=== PATIENT | male | born 1960 | race Caucasian/White ===

== ENCOUNTER 2023-09-08 08:36 | Day surgery (SDC) | payer OTHER, SELFPAY ==
[2023-08-17 14:05] VITALS: BMI 29.5
[2023-08-27 13:26] VITALS: BMI 28.8
--- NOTE | 2023-09-01 11:08 | PM.HPGS ---
History of Present Illness History of Present Illness Consent: Risks, benefits, and alternatives have been discussed and questions answered. Patient agrees to proceed with procedure. Chief complaint: Other fecal abnormalities, neoplasm screening Narrative: Adonis James is a 63 year old male referred for colon cancer screening due to a positive Cologuard test. His last colonoscopy was 5 years ago. His brother had colon cancer. Review of Systems Review of Systems: All systems reviewed & are unremarkable except as noted in HPI and below PMFSH Social History Social History Smoking packs per day: 1 Smoking cigarettes per day: 20.0 Years smoked: 50 Smoking pack-years: 50.00 Smoking status: Current every day smoker Tobacco type: cigarettes Alcohol intake: current Drinks per week: 24 Substance use type: does not use Living arrangements: with family Spiritual care concerns: No Meds Home Medications and Allergies Home Medications Medication Instructions Recorded Confirmed Type aspirin 81 mg tablet 81 mg PO DAILY 08/27/23 09/08/23 History atorvastatin 80 mg tablet 80 mg PO DAILY 08/27/23 09/08/23 History carvedilol 25 mg tablet 25 mg PO BID 08/27/23 09/08/23 History cholecalciferol (vitamin D3) 1,250 1,250 mcg PO WEEKLY 08/27/23 09/08/23 History mcg (50,000 unit) tablet clopidogrel 75 mg tablet 75 mg PO DAILY 08/27/23 09/08/23 History cyanocobalamin (vitamin B-12) 1,000 mcg PO DAILY 08/27/23 09/08/23 History 1,000 mcg tablet duloxetine 30 mg capsule,delayed 30 mg PO DAILY 08/27/23 09/08/23 History release ferrous sulfate 324 mg (65 mg 324 mg PO DAILY 08/27/23 09/08/23 History iron) tablet,delayed release folic acid 1 mg tablet 1 mg PO DAILY 08/27/23 09/08/23 History furosemide 40 mg tablet 20 mg PO DAILY 08/27/23 09/08/23 History magnesium oxide 400 mg PO DAILY 08/27/23 09/08/23 History omega-3 fatty acids-vitamin E 1 cap PO DAILY 08/27/23 09/08/23 History 1,000 mg capsule omeprazole 40 mg capsule,delayed 40 mg PO DAILY 08/27/23 09/08/23 History release sitagliptin 25 mg tablet 25 mg PO DAILY 08/27/23 09/08/23 History Allergies Allergy/AdvReac Type Severity Reaction Status Date / Time No Known Allergies Allergy Mild Verified 09/08/23 09:14 Exam Const: General: alert Orientation/consciousness: patient oriented x3 Resp: Auscultation: clear to auscultation bilaterally Cardio: Rhythm: regular rhythm GI: GI Palp: Yes Soft to palpation and No Tenderness to palpation present (GI) Neuro: General: patient oriented x3 Assessment and Plan Assessment and plan (1) Positive colorectal cancer screening using Cologuard test: Code(s): R19.5 - Other fecal abnormalities Status: Acute Assessment and Plan: Colonoscopy with possible biopsy or polypectomy or cautery or injection of substances.
--- NOTE | 2023-09-01 12:29 | SUR.PREOP ---
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 This was discussed with Dr Baires who stated he would like pt to hold clopidogrel for standard 4 days prior to procedure. Pt was informed of this and instructed his last dose of clopidogrel should be on , September 03, 2023. Pt verbalized understanding.
[2023-09-08] VITALS (7 sets, daily range): BP systolic 155–226; BP diastolic 71–91; PULSE 55–61; RESP 17–20; TEMP 36.6; O2SAT 97–100; BMI 29.0
--- NOTE | 2023-09-08 09:31 | P.PNAN_ITS ---
Anes - Initial Pre Proc Eval Procedure: Operation Date: 09/08/23 10:00 Proposed Procedures p Diagnostic Colonoscopy - Samir Baires MD Date/Time: 09/08/23 09:31 Surgeon: Samir Baires MD Pre Op Diagnosis: Other fecal abnormalities, neoplasm screening Patient Data Age: 63 Gender: M Height: 1.88 m Weight: 102.4 kg Allergies Allergy/AdvReac Type Severity Reaction Status Date / Time No Known Allergies Allergy Mild Verified 09/08/23 09:14 Home Medications Medication Instructions Recorded Confirmed Type aspirin 81 mg tablet 81 mg PO DAILY 08/27/23 09/08/23 History atorvastatin 80 mg tablet 80 mg PO DAILY 08/27/23 09/08/23 History carvedilol 25 mg tablet 25 mg PO BID 08/27/23 09/08/23 History cholecalciferol (vitamin D3) 1,250 1,250 mcg PO WEEKLY 08/27/23 09/08/23 History mcg (50,000 unit) tablet clopidogrel 75 mg tablet 75 mg PO DAILY 08/27/23 09/08/23 History cyanocobalamin (vitamin B-12) 1,000 mcg PO DAILY 08/27/23 09/08/23 History 1,000 mcg tablet duloxetine 30 mg capsule,delayed 30 mg PO DAILY 08/27/23 09/08/23 History release ferrous sulfate 324 mg (65 mg 324 mg PO DAILY 08/27/23 09/08/23 History iron) tablet,delayed release folic acid 1 mg tablet 1 mg PO DAILY 08/27/23 09/08/23 History furosemide 40 mg tablet 20 mg PO DAILY 08/27/23 09/08/23 History magnesium oxide 400 mg PO DAILY 08/27/23 09/08/23 History omega-3 fatty acids-vitamin E 1 cap PO DAILY 08/27/23 09/08/23 History 1,000 mg capsule omeprazole 40 mg capsule,delayed 40 mg PO DAILY 08/27/23 09/08/23 History release sitagliptin 25 mg tablet 25 mg PO DAILY 08/27/23 09/08/23 History Patient hx anesthesia problems: none Family hx anesthesia problems: none Results Review: All pre-operative results and documents have been reviewed as part of the pre- operative evaluation. [facility] Past Medical History Medical History Diabetes HTN (hypertension) PVD (peripheral vascular disease) Smoker Social History Social History Smoking packs per day: 1 Smoking cigarettes per day: 20.0 Years smoked: 50 Smoking pack-years: 50.00 Smoking status: Current every day smoker Tobacco type: cigarettes Alcohol intake: current Drinks per week: 24 Substance use type: does not use Living arrangements: with family Spiritual care concerns: No Anes - Eval Final PreProcedure Day of Procedure 09/08/23 09:31 Patient weight: overweight Heart: regular rate and rhythm Lungs: clear to auscultation Airway: Mallampati scale class II Neurological: alert and oriented Last oral intake: >/= 8 hours ASA classification: IV Emergent: no Anesthetic plan: proceed Anesthesia type and monitoring: general GIVS and standard monitoring Results Review: All pre-operative results and documents have been reviewed as part of the pre- operative evaluation. Informed Consent: The patient's anesthetic plan and its attendant risks and benefits were discussed with the patient/family/POA. Questions were solicited and answers provided to the satisfaction of the patient/family/POA.
--- NOTE | 2023-09-08 09:38 | SUR.PREOP ---
BP ELEVATED. TAKEN ON EACH ARM. RT 201/91. LT 209/87. DR PENA NOTIFIED.
[2023-09-08] MEDS: LACTATED RINGERS 1,000 ML 150 ML IV CONT (09:39)
[2023-09-08 09:42] LABS: Glucose Point of Care 140 mg/dl (65-105)
[2023-09-08] MEDS: hydrALAZINE HCL 20 MG/ML VIAL 10 MG IV PUSH ×2 (10:43→11:05)
[2023-09-08] MEDS: LABETALOL HCL INJ 100 MG/20 ML VIAL 10 MG IV PUSH (11:21)
--- NOTE | 2023-09-08 11:33 | SUR.PHASEII ---
Addendum entered by Virgie Vicente RN 09/08/23 11:38: Dr. Humphrey stated pt could be discharged once pt's BP had returned to pre procedure readings after IV labetolol administration. Original Note: Pt hypertensive post procedure. Pt given 2 doses IV hydralazine per Dr. Humphrey with no change in BP. Pt given 1 dose IV labetaolol per Dr. Humphrey. Pt's BP returned to pre procedure readings. Pt instructed to take normal home carvedilol once home and again this evening. Pt verbalized understanding.
--- NOTE | 2023-09-08 11:41 | WPDANESPN ---
Anes - Prog Note Post-Op Date/Time: 09/08/23 11:41 Cardiovascular status: normal Respiratory status: normal Airway patency: baseline Mental status: baseline Post-Op hydration status: normal Vital Signs: Last Vital Signs Temp 36.6 C 09/08/23 09:37 Pulse 59 L 09/08/23 11:30 Resp 17 09/08/23 11:30 BP 209/89 H 09/08/23 11:30 Pulse Ox 100 09/08/23 11:30 O2 Del Method Room Air 09/08/23 11:30 Pain Score (VAS): 0/10 I/O: Intake & Output 09/07/23 09/08/23 09/08/23 23:59 07:59 15:59 Intake Total 700 Balance 700 09/08/23 09:36 POC Capillary Glucose 140 H Patient Feedback: Patient satisfied with anesthetic care.
== END 2023-09-08 11:39 | disposition home or self-care (01) ==
PROVIDERS: PCP Nurse Practitioner; Visit Provider Internal Medicine Gastroenterology
PROC: 0DJD8ZZ Inspection of Lower Intestinal Tract, Via Natural or Artificial Opening Endoscopic (ICD-10-PCS; CPT 45378; principal; 2023-09-08 10:00)
DX: R19.5 Other fecal abnormalities (principal); D12.0 Benign neoplasm of cecum; D12.4 Benign neoplasm of descending colon; D12.5 Benign neoplasm of sigmoid colon; K57.30 Diverticulosis of large intestine without perforation or abscess without bleeding; K64.8 Other hemorrhoids
CPT/HCPCS: 45385

== ENCOUNTER 2023-09-08 11:52 | Outpatient (NON) | payer OTHER, SELFPAY | END 2023-09-08 11:53 | disposition home or self-care (01) | LOC: ANHLAB 09-09 11:55 | PROVIDERS: PCP Nurse Practitioner; Visit Provider Internal Medicine Gastroenterology | DX: R19.5 Other fecal abnormalities (principal) | CPT/HCPCS: 88305 ==

== ENCOUNTER 2023-09-30 13:07 | Inpatient (IN) | payer OTHER, SELFPAY ==
[2023-09-30] VITALS (28 sets, daily range): BP systolic 135–238; BP diastolic 47–98; PULSE 56–74; RESP 15–28; TEMP 36.2–36.6; O2SAT 94–98; BMI 29.7
--- NOTE | ~2023-09-30 | US_ITS ---
EXAMINATION: US renal BI DATE: 10/02/2023 11:56 INDICATION: Acute kidney injury. TECHNIQUE: Multiple ultrasound grayscale images of the kidneys were obtained. COMPARISON: None. FINDINGS: The right kidney measures 13.7 x 5.9 x 5.7 cm. The left kidney measures 13.1 x 6.7 x 5.2 cm. The kidn eys demonstrate normal parenchymal echogenicity. There is no hydronephrosis. The bladder is normal. T here is a small volume of ascites. IMPRESSION: 1. Normal kidneys. No hydronephrosis. 2. Small volume of ascites. Reviewed, dictated and finalized at location A.
--- NOTE | ~2023-09-30 | XR_ITS ---
EXAMINATION: XR chest 2V DATE: 09/30/2023 13:52 INDICATION: Shortness of breath and left-sided chest pain TECHNIQUE: PA and lateral views of the chest were obtained. COMPARISON: Chest radiograph dated 12/25/17 FINDINGS: Mild bibasilar opacities with blunting at the bilateral costophrenic angles consistent with small anju ateral pleural effusions and associated basilar atelectasis. No pulmonary edema or pneumothorax. The cardiomediastinal silhouette is normal. Partially visualized plate and screw fixation for lower cervi beverly anterior spinal fusion. Likely cholecystectomy clips the upper abdomen. IMPRESSION: 1. Small bilateral pleural effusions with mild bibasilar atelectasis. Reviewed, dictated and finalized at location B.
--- NOTE | ~2023-09-30 | XR_ITS ---
Portable chest x-ray Comparison: 10/01/2023 Clinical History: Shortness of breath Findings: There is mild bibasilar haziness, compatible mild bibasilar pulmonary edema. Cardiomedias tinal silhouette is stable. Bones and soft tissues are unremarkable. Impression: Mild bibasilar pulmonary edema pattern. Correlate for atypical infection. Reviewed, dictated and finalized at [facility]. Impression: Mild bibasilar pulmonary edema pattern. Correlate for atypical infection.
--- NOTE | ~2023-09-30 | XR_ITS ---
EXAMINATION: XR chest 1V portable DATE: 10/01/2023 08:04 INDICATION: Shortness of breath. TECHNIQUE: A single frontal view of the chest was obtained. COMPARISON: Chest 2 views 09/30/2023 FINDINGS: There is mild atelectasis in left lower lung zone. No pleural effusion or pneumothorax. The heart size is normal. There are changes of anterior and posterior fusion procedures in cervical spin e. IMPRESSION: 1. Mild atelectasis in left lower lung zone. Reviewed, dictated and finalized at location E.
--- NOTE | 2023-09-30 13:12 | ECG_ITS ---
Test Date: 2023-09-30 13:16:34 Measurements Intervals [place] Rate: 59 P: 55 WI: 164 QRS: -3 QRSD: 101 T: 133 QT: 428 QTc: 425 Interpretive Statements SINUS BRADYCARDIA DELAYED PRECORDIAL R/S TRANSITION LEFT VENTRICULAR HYPERTROPHY AND ST-T CHANGE BORDERLINE ST-T WAVE ABNORMALITY- LATERAL LEADS BORDERLINE ECG No previous ECG available for comparison Electronically Signed On 09-30-2023 15:06:57 CDT by Donaldo Scott D.O.
[2023-09-30 13:33] LABS: Basophils Percent Auto 0.5 % (0.2-1.2); Eosinophils Absolute Auto 0.1 K/mm3 (0-0.3); Eosinophils Percent Auto 0.9 % (0-4.4); Hematocrit 34.9 % (42.0-52.0); Hemoglobin 12.9 g/dL (14.0-18.0); Immature Granulocyte Absolute 0.02 K/mm3 (0.00-0.031); Immature Granulocyte Percent A 0.3 % (0-0.5); Immature Platelet Fraction Pct 7.6 % (0.9-11.2); Lymphocytes Absolute Auto 0.99 K/mm3 (0.9-3.2); Lymphocytes Percent Auto 15.6 % (18.3-44.2); Mean Corpuscular Hemoglobin 33.9 pg (26-34); Mean Corpuscular Volume 91.6 fl (80-100); Mean Platelet Volume 11.7 fl (7.4-10.4); Monocytes Absolute Auto 0.5 K/mm3 (0.1-0.6); Monocytes Percent Auto 8.5 % (2.6-8.5); Neutrophils Absolute Auto 4.7 K/mm3 (1.3-6.7); Neutrophils Percent Auto 74.2 % (45.5-73.1); Platelet Count Result 91 k/mm3 (150-375); Red Blood Count 3.81 M/mm3 (4.6-6.20); White Blood Count 6.4 K/mm3 (4.5-10.0)
[2023-09-30 13:43] LABS: INR 0.9; Prothrombin Time 13.1 Seconds (11.1-14.7)
[2023-09-30 13:44] LABS: Partial Thromboplastin Time 28.9 Seconds (22.3-36.8)
[2023-09-30 13:47] LABS: Alanine Aminotransferase 33 U/L (6-50); Albumin Level 3.1 g/dL (3.5-5.1); Alkaline Phosphatase 125 U/L (38-126); Anion Gap 3 mmol/L (4-12); Aspartate Amino Transferase 43 U/L (17-59); Bilirubin,Total 0.7 mg/dL (0.2-1.3); Blood Urea Nitrogen 14 mg/dL (9-20); Calcium 8.1 mg/dL (8.4-10.2); Carbon Dioxide 29 mmol/L (22-30); Chloride 104 mmol/L (98-107); Estimated CRCL calculation 49 ml/min; Estimated Glomerular Filt Rate 41; Glucose 201 mg/dL (65-110); Potassium 3.1 mmol/L (3.4-5.0); Sodium 136 mmol/L (137-145)
[2023-09-30 13:58] LABS: NT Pro B Type Natriuretic Pept 6910 pg/mL (19.9-100); Troponin I 0.033 ng/mL (0.000-0.034)
[2023-09-30] MEDS: hydrALAZINE HCL 20 MG/ML VIAL 10 MG IV PUSH (15:03)
[2023-09-30] MEDS: niCARdipine 20 MG/200 ML 20 MG/200 ML BAG 50 MG IV CONT ×2 (15:54→20:09)
--- NOTE | 2023-09-30 16:23 | ED.GENADULT ---
HPI - General Adult General Chief complaint: Recheck/Abnormal Lab/Rx Stated complaint: HTN, sob x1 week Time Seen by Provider: 09/30/23 14:55 History of Present Illness HPI narrative: Patient is a 63-year-old male who presents to the emergency department this afternoon due to an elevated blood pressure and shortness of breath. Patient admits that the shortness of breath has been getting worse for the past couple of days and he has also noticed that his lower extremity has been more swollen than usual. He admits that he normally has swelling around his ankles but now it has extended to his bilateral legs. His PCP was concerned for possibly a DVT but patient states that his lower extremity feels as though it is fluid filled and has been symmetrical. He admits that he has been taking his blood pressure medications regularly and denies any chest pain. He denies any additional symptoms or concerns at this time. Related Data Home Medications Medication Instructions Recorded Confirmed aspirin 81 mg tablet 81 mg PO DAILY 08/27/23 09/08/23 atorvastatin 80 mg tablet 80 mg PO DAILY 08/27/23 09/08/23 carvedilol 25 mg tablet 25 mg PO BID 08/27/23 09/08/23 cholecalciferol (vitamin D3) 1,250 1,250 mcg PO WEEKLY 08/27/23 09/08/23 mcg (50,000 unit) tablet clopidogrel 75 mg tablet 75 mg PO DAILY 08/27/23 09/08/23 cyanocobalamin (vitamin B-12) 1,000 mcg PO DAILY 08/27/23 09/08/23 1,000 mcg tablet duloxetine 30 mg capsule,delayed 30 mg PO DAILY 08/27/23 09/08/23 release ferrous sulfate 324 mg (65 mg 324 mg PO DAILY 08/27/23 09/08/23 iron) tablet,delayed release folic acid 1 mg tablet 1 mg PO DAILY 08/27/23 09/08/23 furosemide 40 mg tablet 20 mg PO DAILY 08/27/23 09/08/23 magnesium oxide 400 mg PO DAILY 08/27/23 09/08/23 omega-3 fatty acids-vitamin E 1 cap PO DAILY 08/27/23 09/08/23 1,000 mg capsule omeprazole 40 mg capsule,delayed 40 mg PO DAILY 08/27/23 09/08/23 release sitagliptin 25 mg tablet 25 mg PO DAILY 08/27/23 09/08/23 Allergies Allergy/AdvReac Type Severity Reaction Status Date / Time No Known Allergies Allergy Mild Verified 09/30/23 13:12 Review of Systems Review of Systems: All systems are reviewed and are negative unless stated otherwise in the HPI. [facility] Past Medical History Medical History Diabetes HTN (hypertension) PVD (peripheral vascular disease) Smoker Social History Social History Smoking packs per day: 1 Smoking cigarettes per day: 20.0 Years smoked: 50 Smoking pack-years: 50.00 Smoking status: Current every day smoker Tobacco type: cigarettes Alcohol intake: current Drinks per week: 24 Substance use type: does not use Living arrangements: with family Spiritual care concerns: No Exam Narrative: General: Alert, awake, afebrile, in no acute distress. HEENT: PERRL, no rhinorrhea, no post nasal drip, oropharynx clear. Cardiovascular: Regular rate and rhythm, no murmurs, rubs or gallops, bilateral lower extremity 3+ pitting edema. Respiratory: Clear to auscultation bilaterally, no tachypnea, no wheezing, no rhonchi, no rubs, no respiratory distress. Abdomen: Soft, nontender, nondistended, no rebound, no guarding, no peritoneal signs. Musculoskeletal: No joint swelling or deformity, normal muscle tone. Skin: No rashes or petechia, no signs of infection. Neurological: Alert and oriented to person, place, and time. Follows all commands. No focal deficits, speech is clear and fluent. Course Vital Signs Vital signs: Vital Signs Temperature 97.2 F L 09/30/23 13:10 Pulse Rate 64 09/30/23 13:10 Respiratory Rate 16 09/30/23 13:10 Blood Pressure 238/82 H 09/30/23 13:10 Pulse Oximetry 98 09/30/23 13:10 Temperature 97.2 F L 09/30/23 13:10 Pulse Rate 56 L 09/30/23 15:55 Respiratory Rate 17 09/30/23 15:55 Blood Pressure 210/79 H 09/30/23 15:55 Pulse Oximetry 97 09/30/23 15:55
[2023-09-30] MEDS: POTASSIUM CHLORIDE 20 MEQ PACKET (FOR LIQUID) 40 MEQ PO (16:36)
[2023-09-30 16:46] LABS: Magnesium 1.8 mg/dL (1.6-2.3)
--- NOTE | 2023-09-30 17:45 | ADMGEN ---
This patient, Adonis James, was admitted to Intensive Care Unit-2. Patient/family oriented to hospital policies and general routines including ID bracelet, bed and alarms, visiting hours, pain management, procedures, bathroom and other care routines, personal items, smoking policy, room service/diet, and visiting hours. Information on how to activate the Rapid Response Team has been discussed. Patient/Family are encouraged to report perceived risks to care and to ask questions if they do not understand what they are told or what they should do.
[2023-09-30 19:52] LABS: Creatine Kinase 177 U/L (55-170)
[2023-09-30 21:25] LABS: Glucose Point of Care 151 mg/dl (65-105)
--- NOTE | 2023-09-30 21:30 | PM.IMHP ---
H&P: HPI History of Present Illness Date/Time: 09/30/23 21:30 Chief Complaint: HTN, SOB Narrative: 63 y/o M presents here with shortness of breath, high blood pressure, and left shoulder pain with PMH of DM, HTN, peripheral vascular disease, and current smoker. The patient presents here from home for further evaluation of shortness of breath, high blood pressure, swelling in his lower extremities, and left shoulder pain. Initially started with the lower extremity swelling which started around a year ago. Originally was confined to his ankles and symmetric. Worsening of the swelling was preceded by shortness of the breath which has been ongoing for 2 weeks. Initially noted it when he laid on his left side which was alleviated by slow deep breaths. Has since worsened and occurring intermittently. Does not appear to coincide with activity as it is also occurring with rest per patient. Patient also reports Now in the last week the swelling has extended to his calves and abdomen, swelling remains symmetric. Patient had a follow-up appt with his PCP on Thursday (09/27) and his blood pressure was 226/102. Patient was urged to go to the ED for care. Patient however went home to recheck his blood pressure which was 182/83. Yesterday patient reports having episodes of not feeling right, would recheck his blood pressure and an EKG on his watch which did not show AFib. Reports it was 145/72 yesterday evening but then 196/88 before bed. Reports compliance with his home blood pressure medications. When his BP remained elevated this morning despite his morning meds he elected to seek care. Endorsing associated pulsating headache, since initiation of nicardipine gtt and short nap the headache has resolved. Denying dizziness or vision changes. Initial VS at presentation: 97.2? F, HR 64, RR 16, weight 238/82, and 98% on RA. ED workup showed: No leukocytosis, hemoglobin 12.9, normal coags sodium 136, potassium 3.1, creatinine 1.7 and GFR 41, glucose 201, BNP 6910, and initial troponin 0.033. CXR showed small bilateral pleural effusions with mild bibasilar atelectasis. Review of Systems Review of Systems: All systems reviewed & are unremarkable except as noted in HPI and below PMFSH Past Medical History Medical History Diabetes HTN (hypertension) PVD (peripheral vascular disease) Smoker Social History Social History Smoking packs per day: 1 Smoking cigarettes per day: 20.0 Years smoked: 50 Smoking pack-years: 50.00 Smoking status: Never smoker Tobacco type: cigarettes Alcohol intake: never Drinks per week: 24 Substance use: never Substance use type: does not use Do You Feel Safe in your Home?: Yes Lack of Transportation: No Lack of Food: Never True Current Housing: I Have Housing Concerned About Future Housing: No Difficulty Paying Gas/Electric Bills: No Difficulty Paying for Meds: No Currently Unemployed: No Education: High School Diploma/GED Difficulty w/ Childcare or Family Care: No Living arrangements: with family Spiritual care concerns: No Meds Home Medications and Allergies Home Medications Medication Instructions Recorded Confirmed Type aspirin 81 mg tablet 81 mg PO DAILY 08/27/23 09/30/23 History atorvastatin 80 mg tablet 80 mg PO DAILY 08/27/23 09/30/23 History carvedilol 25 mg tablet 25 mg PO BID 08/27/23 09/30/23 History cholecalciferol (vitamin D3) 1,250 1,250 mcg PO WEEKLY 08/27/23 09/30/23 History mcg (50,000 unit) tablet clopidogrel 75 mg tablet 75 mg PO DAILY 08/27/23 09/30/23 History cyanocobalamin (vitamin B-12) 1,000 mcg PO DAILY 08/27/23 09/30/23 History 1,000 mcg tablet duloxetine 30 mg capsule,delayed 30 mg PO DAILY 08/27/23 09/30/23 History release ferrous sulfate 324 mg (65 mg 324 mg PO DAILY 08/27/23 09/30/23 History iron) tablet,delayed release folic acid 1 mg tablet 1 mg PO DAILY 08/27/23
[2023-09-30 21:31] LABS: MRSA (PCR) NOT DETECTED (NOT DETECTE)
[2023-09-30] MEDS: niCARdipine 20 MG/200 ML 20 MG/200 ML BAG 75 MG IV CONT (23:05)
[2023-09-30 23:29] LABS: Creatinine Urine 183.5 mg/dL
[2023-09-30 23:36] LABS: Sodium Urine Random 65 meq/L
[2023-10-01] VITALS (37 sets, daily range): BP systolic 120–185; BP diastolic 58–88; PULSE 59–81; RESP 13–23; TEMP 36.6–37.1; O2SAT 88–98
[2023-10-01 00:43] LABS: Total Protein Urine Random > 600 mg/dL; Ur Ttl Prot Creatinine Ratio 3.27 mg/mg (0-0.20)
[2023-10-01] MEDS: niCARdipine 20 MG/200 ML 20 MG/200 ML BAG 75 MG IV CONT ×2 (01:45→04:30)
[2023-10-01 04:10] LABS: Basophils Absolute Auto 0.1 K/mm3 (0.0-0.1); Basophils Percent Auto 0.5 % (0.2-1.2); Eosinophils Absolute Auto 0.1 K/mm3 (0-0.3); Eosinophils Percent Auto 1.2 % (0-4.4); Hematocrit 33.1 % (42.0-52.0); Hemoglobin 12.1 g/dL (14.0-18.0); Immature Granulocyte Absolute 0.03 K/mm3 (0.00-0.031); Immature Granulocyte Percent A 0.3 % (0-0.5); Immature Platelet Fraction Pct 6.8 % (0.9-11.2); Lymphocytes Absolute Auto 1.53 K/mm3 (0.9-3.2); Lymphocytes Percent Auto 14.8 % (18.3-44.2); Mean Corpuscular HGB Conc 36.6 g/dl (32-36); Mean Corpuscular Hemoglobin 33.2 pg (26-34); Mean Corpuscular Volume 90.9 fl (80-100); Mean Platelet Volume 11.4 fl (7.4-10.4); Monocytes Absolute Auto 0.9 K/mm3 (0.1-0.6); Monocytes Percent Auto 8.7 % (2.6-8.5); Neutrophils Absolute Auto 7.7 K/mm3 (1.3-6.7); Neutrophils Percent Auto 74.5 % (45.5-73.1); Platelet Count Result 108 k/mm3 (150-375); Red Blood Count 3.64 M/mm3 (4.6-6.20); White Blood Count 10.4 K/mm3 (4.5-10.0)
[2023-10-01 04:17] LABS: Hemoglobin A1C 6.7 % (<5.7)
[2023-10-01 04:19] LABS: Alanine Aminotransferase 30 U/L (6-50); Alkaline Phosphatase 115 U/L (38-126); Anion Gap 3 mmol/L (4-12); Aspartate Amino Transferase 40 U/L (17-59); Bilirubin,Total 0.9 mg/dL (0.2-1.3); Blood Urea Nitrogen 19 mg/dL (9-20); Calcium 8.2 mg/dL (8.4-10.2); Carbon Dioxide 29 mmol/L (22-30); Chloride 106 mmol/L (98-107); Creatine Kinase 161 U/L (55-170); Estimated CRCL calculation 44 ml/min; Estimated Glomerular Filt Rate 36; Glucose 125 mg/dL (65-110); Magnesium 1.9 mg/dL (1.6-2.3); Phosphorus 3.4 mg/dL (2.5-4.5); Sodium 138 mmol/L (137-145)
[2023-10-01] MEDS: niCARdipine 20 MG/200 ML 20 MG/200 ML BAG 50 MG IV CONT (07:45)
[2023-10-01 07:52] LABS: Glucose Point of Care 158 mg/dl (65-105)
--- NOTE | 2023-10-01 07:53 | WPDCNINT ---
Assessment and Plan Assessment and plan (1) Hypertensive urgency: Code(s): I16.0 - Hypertensive urgency Status: Acute Assessment and Plan: Patient presented with shortness of breath, headaches, bilateral lower extremity edema and elevated blood pressures that he took at home. In the ER blood pressures were 238/82, patient was given hydralazine 10 mg IV x1 and then started on nicardipine infusion and transferred to the ICU for further management -patient states he has tried lisinopril and has not worked for him -he gets his care in [place] from by his primary care doctor as well as his med surg nurse -he is currently on Lasix 20 mg p.o. q.day, carvedilol 25 mg p.o. b.i.d. -given his creatinine is elevated, will hold Lasix for now, will restart carvedilol and added amlodipine -will have Cardiology evaluate the patient for hypertensive urgency, increasing lower extremity edema and likely CHF given the elevated proBNP -troponin x1 was negative, denies any chest pain -echocardiogram has been ordered (2) Diabetes: Code(s): E11.9 - Type 2 diabetes mellitus without complications Status: Chronic Assessment and Plan: Continue sliding scale insulin Accu-Cheks -hemoglobin A1c is 6.7 this admission -patient takes sitagliptin at home (3) RENETTA (acute kidney injury): Code(s): N17.9 - Acute kidney failure, unspecified Status: Acute Assessment and Plan: Acute kidney injury, creatinine 1.90, (unknown). Patient does have a history of hypertension, diabetes, CHF given his lower extremity edema and elevated proBNP, could also be related to Lasix, patient also has a history of tobacco abuse -echocardiogram is pending -patient with adequate p.o. intake -continue monitoring urine output, renal function electrolytes -will hold her Lasix for now - (4) Acute hypokalemia: Code(s): E87.6 - Hypokalemia Status: Acute Assessment and Plan: Replace potassium (5) Congestive heart failure: Code(s): I50.9 - Heart failure, unspecified Status: Acute Assessment and Plan: Patient presented with shortness of breath, hypertension urgency, Lower extremity edema bilaterally, elevated proBNP, history of hypertension -will obtain echocardiogram -cardiology has been consult -chest x-ray this morning showed mild atelectasis in the left lower lung zone (6) Tobacco abuse: Code(s): Z72.0 - Tobacco use Status: Acute Assessment and Plan: Patient was counseled on smoking cessation, stated that he has tried to quit smoking for a couple of times for 6 months but restarted. Patient stated that he is going to think again about quitting. I did explain to him that he is at increased risk of cardiac disease due to history of smoking along with a history of essential hypertension, diabetes. Plan DVT prophylaxis: Lovenox Stress ulcer prophylaxis: Not indicated Nutrition: Heart healthy diet Code Status: Full code Critical Care Time Spent: 47 minutes Due to a high probability of clinically significant, life threatening deterioration, the patient required my highest level of preparedness to intervene emergently and I personally spent this critical care time directly and personally managing the patient. This critical care time included obtaining a history; examining the patient; pulse oximetry; ordering and review of studies; arranging urgent treatment with development of a management plan; evaluation of patient's response to treatment; frequent reassessment; and discussions with other providers. It was exclusive of separately billable procedures and treating other patients and teaching time. Please see Assessment and Plan section and the rest of the note for further information on patient assessment and treatment This dictation may have been done utilizing a voice recognition system. Attempts have been made to correct errors. However, there may be uncorrected grammatical, spelling, and
[2023-10-01] MEDS: MAGNESIUM SULF 2 GM/WATER 50ML 2 GM/50 ML BAG IVPB (08:04)
[2023-10-01] MEDS: DULoxetine HCL 30 MG CAPSULE.DR PO (08:05)
[2023-10-01] MEDS: amLODIPine BESYLATE 10 MG TABLET PO (08:05)
[2023-10-01] MEDS: ATORVASTATIN 40 MG TABLET 80 MG PO (08:05)
[2023-10-01] MEDS: POTASSIUM CHLORIDE 20 MEQ ER TABLET 80 MEQ PO (08:05)
[2023-10-01] MEDS: CLOPIDOGREL BISULFATE 75 MG TABLET PO (08:05)
[2023-10-01] MEDS: ASPIRIN 81 MG CHEWABLE TABLET PO (08:05)
[2023-10-01] MEDS: ENOXAPARIN 40 MG/0.4 ML SYRINGE SUB-Q (08:06)
[2023-10-01] MEDS: PANTOPRAZOLE 40 MG TABLET PO ×2 (08:10→16:45)
[2023-10-01] MEDS: carvediloL 25 MG TABLET PO ×2 (08:52→19:55)
--- NOTE | 2023-10-01 09:48 | PM.CNCAR ---
Assessment and Plan Assessment and plan (1) Hypertensive emergency: Code(s): I16.1 - Hypertensive emergency Status: Acute Assessment and Plan: Continue Coreg 25mg BID. Started on Amlodipine 10mg once daily. Wean off Nicardipine drip as tolerated. If SCr improves, recommend to resume Lasix. Depending on how his renal function does, would also like to add ACEi/ARB as well since he is a diabetic. Echocardiogram ordered and pending (will be done 10/01 due to the September holiday). (2) RENETTA (acute kidney injury): Code(s): N17.9 - Acute kidney failure, unspecified Status: Acute Assessment and Plan: SCr 1.7 on admission, up to 1.9 this morning. Baseline level is unknown. Continue to monitor renal function. (3) Diabetes: Code(s): E11.9 - Type 2 diabetes mellitus without complications Status: Chronic Assessment and Plan: Management as per primary team. (4) Tobacco abuse: Code(s): Z72.0 - Tobacco use Status: Acute Assessment and Plan: Recommend smoking cessation. Plan Recommendations and plan discussed with Hospitalist. History of Present Illness History of Present Illness Consult date/time: 10/01/23 09:48 Requesting physician: Amalia Martinez MD Consult reason: Other (Hypertensive Emergency ) Reason For Visit: Hypertensive Emergency/Cardene Drip/Fluid Overload Narrative: We are consulted for hypertensive emergency. This is a 63 year old male with hypertension, diabetes mellitus, peripheral vascular disease, tobacco dependence who presented to [facility] for shortness of breath, headache, increased lower extremity edema. 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 No chest pain. Patient reports that his blood pressures at home usually run in the 180s to 200s systolics. Takes Coreg 25mg BID and Lasix 20mg once daily at home, which he reports compliance with. He recently lost his sister due to liver and renal disease, and that has added to his stress. In the ED, blood pressure was 238/82mmHg. Given dose of Hydralazine 10mg IV and started on Nicardipine drip with improvement in his blood pressure. Creatinine noted to be 1.7, which increased to 1.9 on today's labs. BNP 6910. EKG with sinus rhythm, LVH with secondary repolarization abnormalities. Review of Systems Review of Systems: All systems reviewed & are unremarkable except as noted in HPI and below (HPI) [facility] Past Medical History Medical History Diabetes HTN (hypertension) PVD (peripheral vascular disease) Smoker Social History Social History Smoking packs per day: 1 Smoking cigarettes per day: 20.0 Years smoked: 50 Smoking pack-years: 50.00 Smoking status: Never smoker Tobacco type: cigarettes Alcohol intake: never Drinks per week: 24 Substance use: never Substance use type: does not use Do You Feel Safe in your Home?: Yes Lack of Transportation: No Lack of Food: Never True Current Housing: I Have Housing Concerned About Future Housing: No Difficulty Paying Gas/Electric Bills: No Difficulty Paying for Meds: No Currently Unemployed: No Education: High School Diploma/GED Difficulty w/ Childcare or Family Care: No Living arrangements: with family Spiritual care concerns: No Meds Home Medications and Allergies Home Medications Medication Instructions Recorded Confirmed Type aspirin 81 mg tablet 81 mg PO DAILY 08/27/23 09/30/23 History atorvastatin 80 mg tablet 80 mg PO DAILY 08/27/23 09/30/23 History carvedilol 25 mg tablet 25 mg PO BID 08/27/23 09/30/23 History cholecalciferol (vitamin D3) 1,250 1,250 mcg PO WEEKLY 08/27/23 09/30/23 History mcg (50,000 unit) tablet clopidogrel 75 mg tablet 75 mg PO DAILY 08/27/23 09/30/23 History cyanocobalamin (vitamin B-12) 1,000 mcg PO DAILY 08/27/23 09/30/23 History 1,000 mc
[2023-10-01 11:57] LABS: Glucose Point of Care 216 mg/dl (65-105)
[2023-10-01] MEDS: INSULIN ASPART (*BKC) 100 UNITS/ML SUB-Q (12:02)
--- NOTE | 2023-10-01 13:03 | PM.IMPN ---
Progress Note: A&P Assessment and Plan (1) Hypertensive urgency: Code(s): I16.0 - Hypertensive urgency Status: Acute Assessment and Plan: Patient presented with SOB, headaches and worsening bilateral lower extremity edema and found to have markedly elevated blood pressure at 238/82. Patient was given hydralazine 10 mg IV x1 and then started on nicardipine infusion and transferred to the ICU for further management He gets his care in [place] from by his primary care doctor as well as his general manager. Patient states lisinopril has not worked for him. He has noted BP has been running high at home. Home meds: Lasix 20 mg p.o. q.day, carvedilol 25 mg p.o. b.i.d. Trooponin negative x1. BNP 6900. EKG showing sinus bradycardia (59) with LVH and ST-T wave changes CXR showing small bilateral pleural effusions with atelectasis. Lasix held due to elevated Cr. Carvedilol resumed and amlodipine added Cardiology consulted and appreciate their input. Weaned off nicardipine. Monitor closely and don't overcorrect Echo ordered. (2) Diabetes: Code(s): E11.9 - Type 2 diabetes mellitus without complications Status: Chronic Assessment and Plan: A1c is 6.7. The patient's blood glucose was reviewed on 09/30 Glucose remains well controlled. Continue AccuCheks covering with sliding scale. Hypoglycemia protocol available as needed. Continue to follow. Sitagliptin on hold. (3) RENETTA (acute kidney injury): Code(s): N17.9 - Acute kidney failure, unspecified Status: Acute Assessment and Plan: Patient with renal insufficiency. Creatinine 1.7 but with unknown baseline. He does have HTN and DM so suspect he has at least a chronic component. Urine Prot/Cr ration 3.3gm consistent with nephrotic syndrome which could explain his edema and bloating. Echocardiogram is pending Cr 1.9 today. Check urine studies and other testing Continue to monitor urine output, renal function and electrolytes (4) Acute hypokalemia: Code(s): E87.6 - Hypokalemia Status: Acute Assessment and Plan: Potassium low on admission. Probably realted to the home lasix Replace potassium. (5) Congestive heart failure: Code(s): I50.9 - Heart failure, unspecified Status: Acute Assessment and Plan: CXR as mentioned above. BNP 6900. Patient presented with SOB and lower extremity edema Concern for CHF but consider nephrotic syndrome and HTN urgency. Echo ordered. Monitor off Lasix (6) Tobacco abuse: Code(s): Z72.0 - Tobacco use Status: Acute Assessment and Plan: Patient was was educated about the benefits of smoking cessation (7) PVD (peripheral vascular disease): Code(s): I73.9 - Peripheral vascular disease, unspecified Status: Acute Assessment and Plan: Stable. Patient is status post stent placement in his pelvis and lower extremities. Smoking cessation was advised Continue aspirin and Lipitor. Plan DVT prophylaxis: Lovenox Code Status: Full code Subjective Date/time seen: 10/01/23 13:03 Interval history: 63yo male with HTN, DM, PVD and tobacco abise here for shortness of breath. Patient was on nicardipine drip this morning that was weaned off. He denies any chest pain. Shortness of breath is better. No abdominal pain. No gum bleeding but does have easy bruising. He does have a productive cough. He had a left heart catheterization in December but no stents required. He does have peripheral arterial disease with stents in his pelvis and legs. He has noted increasing leg edema with abdominal bloating. He is on Lasix for leg edema but denies history of heart failure. Leg edema has improved since admission. Exam Narrative: AF 98.0 148/66 64 20 95% 2L Gen - NARD Chest - left base crackles o/w clera. CV - RRR S1/S2 with occasional extra beat and 2/6 systolic murmur Rt USB. Tele showing PVCs Abd - Soft, NT/N
[2023-10-01 15:49] LABS: Glucose Point of Care 139 mg/dl (65-105)
[2023-10-01] MEDS: hydrALAZINE HCL 20 MG/ML VIAL 10 MG IV PUSH ×3 (17:00→23:50)
[2023-10-01 17:29] LABS: Appearance Urine Clear (Clear); Bacteria Urine None Seen /hpf; Bilirubin Urine Negative (Negative); Blood Urine 1+ (Negative); Color Urine Yellow (Yellow); Glucose Urine UA 1+ mg/dL (Negative); Ketones Urine Trace mg/dL (Negative); Leukocyte Esterase Ur Negative LEU/UL (Negative); Need Manual Microscopic Reviewed; Nitrate Urine Negative (Negative); Protein Urine 4+ mg/dL (Negative); RBC Urine 0-2 /hpf (0-2); Specific Grav Ur 1.023 (1.001-1.035); Squamous Epithelial Cell Urine Occasional /hpf (Few); Urobilinogen Urine 0.2 mg/dL (<2.0); WBC Urine 0-5 /hpf (0-3); pH Urine 5.5 (5.0-9.0)
[2023-10-01 17:30] LABS: Add Urine Microscopic? YES
[2023-10-01 21:51] LABS: Glucose Point of Care 173 mg/dl (65-105)
[2023-10-02] VITALS (22 sets, daily range): BP systolic 158–194; BP diastolic 67–85; PULSE 61–75; RESP 15–22; TEMP 36.2–36.6; O2SAT 94–98
--- NOTE | 2023-10-02 | ECHO_ITS ---
Patient Info Name: Adonis James Age: 63 years : 1960 Gender: Male Ht: 75 in Wt: 238 lbs BSA: 2.41 m2 HR: 66 bpm BP: 172 / 71 mmHg Heart Rhythm: Sinus Rhythm Technical Quality: Good Exam Date: 10/02/2023 7:57 AM Exam Location: Echo Lab Patient Status: Inpatient Admit Date: 09/30/2023 Staff Ordering Physician: Hattie Sorenson APRN Distiller: Isidro Holguin RDCS Attending Provider: Tan Olson MD Referring Physician: Delta ALEGRE; Exam Type: CA echo doppler color flow Study Info Indications - elevated BNP - SOB Complete two-dimensional, color flow and Doppler transthoracic echocardiogram is performed. Summary 1. Complete two-dimensional, color flow and Doppler transthoracic echocardiogram is performed. 2. Severe concentric left ventricular hypertrophy with vigorous systolic function and diastolic noncompliance. 3. Mitral annular calcium. 4. Mildly sclerotic aortic valve with trivial regurgitation. Left Ventricle Left ventricular chamber dimension is normal. Left ventricular systolic function is normal, estimated at 65-70%. There is severe concentric increased left ventricular wall thickness. The left ventricular diastolic function is grade I diastolic dysfunction. Right Ventricle Right ventricular chamber dimension is normal. Left Atria Left atrial chamber dimension is mildly enlarged. Right Atria Right atrial chamber dimension is normal. Aortic Valve The aortic valve is trileaflet. There is mild aortic valve sclerosis. There is trace aortic valve regurgitation. Pulmonic Valve The pulmonic valve is normal. Mitral Valve The mitral valve has normal leaflets. The mitral valve annulus is moderately calcified. Tricuspid Valve The tricuspid valve leaflets are normal. Pericardium/Pleural The pericardium appears normal. Aorta The aortic root size at the sinus of Valsalva is normal. Left Ventricular Outflow Tract Name Value Normal LVOT 2D LVOT Diameter 2.2 cm LVOT Doppler LVOT Peak Gradient 9 mmHg LVOT Mean Gradient 6 mmHg LVOT VTI 32 cm LVOT VTI/AV VTI Ratio 0.6 LVOT Stroke Volume 122 ml LVOT CO 7.5 l/min LVOT CI 3.1 l/min/m2 Pulmonic Valve Name Value Normal PV Doppler PV Peak Gradient 8 mmHg Mitral Valve Name Value Normal MV Doppler MV Peak Gradient 8 mmHg MV Mean Gradient 4 mmHg MV Decel [place] 464 cm/s2 MV PHT
--- NOTE | 2023-10-02 02:22 | PC.NURSE ---
Dr. Blanco updated on patient blood pressure. MD request AM labs drawn now to evaluate kidney function and potassium level.
--- NOTE | 2023-10-02 02:31 | PC.NURSE ---
Patient complaining of shortness of breath after ambulating to the bathroom. Placed on 2L NC. No change in lung assessment.
[2023-10-02 02:40] LABS: Basophils Percent Auto 0.5 % (0.2-1.2); Eosinophils Absolute Auto 0.1 K/mm3 (0-0.3); Eosinophils Percent Auto 0.7 % (0-4.4); Hematocrit 34.5 % (42.0-52.0); Hemoglobin 12.4 g/dL (14.0-18.0); Immature Granulocyte Absolute 0.02 K/mm3 (0.00-0.031); Immature Granulocyte Percent A 0.2 % (0-0.5); Immature Platelet Fraction Pct 7.5 % (0.9-11.2); Lymphocytes Absolute Auto 1.41 K/mm3 (0.9-3.2); Lymphocytes Percent Auto 16.6 % (18.3-44.2); Mean Corpuscular HGB Conc 35.9 g/dl (32-36); Mean Corpuscular Hemoglobin 33.3 pg (26-34); Mean Corpuscular Volume 92.7 fl (80-100); Mean Platelet Volume 11.1 fl (7.4-10.4); Monocytes Absolute Auto 0.8 K/mm3 (0.1-0.6); Monocytes Percent Auto 9.1 % (2.6-8.5); Neutrophils Absolute Auto 6.2 K/mm3 (1.3-6.7); Neutrophils Percent Auto 72.9 % (45.5-73.1); Platelet Count Result 95 k/mm3 (150-375); Red Blood Count 3.72 M/mm3 (4.6-6.20); Red Cell Distribution Width 12.3 % (11.5-14.5); White Blood Count 8.5 K/mm3 (4.5-10.0)
[2023-10-02 02:51] LABS: Alanine Aminotransferase 29 U/L (6-50); Alkaline Phosphatase 114 U/L (38-126); Anion Gap 4 mmol/L (4-12); Aspartate Amino Transferase 37 U/L (17-59); Bilirubin,Total 0.8 mg/dL (0.2-1.3); Blood Urea Nitrogen 17 mg/dL (9-20); Calcium 8.3 mg/dL (8.4-10.2); Carbon Dioxide 26 mmol/L (22-30); Chloride 105 mmol/L (98-107); Estimated CRCL calculation 49 ml/min; Estimated Glomerular Filt Rate 41; Glucose 141 mg/dL (65-110); Magnesium 2.1 mg/dL (1.6-2.3); Phosphorus 3.3 mg/dL (2.5-4.5); Potassium 3.2 mmol/L (3.4-5.0); Sodium 135 mmol/L (137-145)
--- NOTE | 2023-10-02 02:54 | PC.NURSE ---
Dr. Blanco updated on labs.
--- NOTE | 2023-10-02 03:00 | PC.NURSE ---
Dr. Blanco at bedside.
--- NOTE | 2023-10-02 03:13 | P.PNCROSS_ITS ---
Event Note Event Note Event Note: Asked by SOCIAL MEDIA CONTENT SPECIALIST to evaluate pt for new onset SOB, increase in edema. He has had ankle swelling for a year, b/l LE and abdominal swelling for a week, and tonight has developed b/l UE swelling along with SOB (believes his abdominal swelling to be the cause). Upon evaluating the patient, he is wearing nasal cannula, also has sacral edema. lung sounds clear. CXR ordered. administered Lasix 40mg IV x1. sCR 1.8 --> 1.7. suspect in part due to CHF causing low effective arterial volume, and hypertensive urgency. BP 190/73: giving lasix + hydralazine 5mg IV x1. hypokalemia may be contributing as well, replete K+. also STOP BANG score is 3, Mallampati 3, ordered apnea link for tonight, treatment of JORDAN should bring down BP.
[2023-10-02] MEDS: FUROSEMIDE INJ 40 MG/4 ML VIAL IV PUSH (03:17)
[2023-10-02] MEDS: hydrALAZINE HCL 20 MG/ML VIAL 5 MG IV PUSH (03:17)
[2023-10-02] MEDS: POTASSIUM CHLORIDE 20 MEQ ER TABLET 40 MEQ PO ×2 (03:18→08:52)
[2023-10-02 03:31] LABS: HIV 1/2 Ab P24 Ag Result Negative (Negative)
[2023-10-02] MEDS: hydrALAZINE HCL 20 MG/ML VIAL 10 MG IV PUSH ×2 (04:13→22:25)
[2023-10-02 04:38] LABS: Hepatitis B Surface Antigen Negative (Negative)
--- NOTE | 2023-10-02 04:45 | PC.NURSE ---
Dr. Martinez updated on patient current BP, new orders received.
[2023-10-02 04:55] LABS: Hepatitis B Surface Anti Res Negative; Hepatitis C Virus Antibody Negative (Negative)
[2023-10-02 04:59] LABS: Complement C3 135 mg/dL (88-165)
[2023-10-02] MEDS: LABETALOL HCL INJ 100 MG/20 ML VIAL 20 MG IV PUSH (05:52)
[2023-10-02 08:10] LABS: Glucose Point of Care 168 mg/dl (65-105)
[2023-10-02] MEDS: DULoxetine HCL 30 MG CAPSULE.DR PO (08:52)
[2023-10-02] MEDS: ASPIRIN 81 MG CHEWABLE TABLET PO (08:52)
[2023-10-02] MEDS: amLODIPine BESYLATE 10 MG TABLET PO (08:52)
[2023-10-02] MEDS: carvediloL 12.5 MG TABLET 37.5 MG PO ×2 (08:52→20:43)
[2023-10-02] MEDS: CLOPIDOGREL BISULFATE 75 MG TABLET PO (08:52)
[2023-10-02] MEDS: ATORVASTATIN 40 MG TABLET 80 MG PO (08:52)
[2023-10-02] MEDS: PANTOPRAZOLE 40 MG TABLET PO ×2 (08:52→17:03)
[2023-10-02] MEDS: ENOXAPARIN 40 MG/0.4 ML SYRINGE SUB-Q (08:53)
--- NOTE | 2023-10-02 09:08 | PM.PNCARD ---
Progress Note: A&P Assessment and Plan (1) Hypertensive urgency: Code(s): I16.0 - Hypertensive urgency Status: Acute Plan 63-year-old man with chronic longstanding hypertension with poor control on his beta-danny. This is been advanced. Amlodipine has been added to her regimen. Today I am going to add ARB as well as chlorthalidone to this regimen. Hopefully his blood pressure will improve enough in the next 24-48 hours for he can be discharged from that perspective. Medical care/follow-up will be difficult/challenging as he and his live out of their camping trailer and are constantly on the move Balwinder Moise MD [facility] Subjective Date/time seen: Date of service: 10/02/23 09:08 Interval history: Follow-up visit in this 63-year-old man with: Longstanding hypertension poor control. Patient has been on carvedilol chronically but really not much else in the way of antihypertensive regimen. Amlodipine has been added to his regimen. Blood pressure is still in the 180-190 range today. He is otherwise relatively comfortable. He does have some persistent lower extremity edema and abdominal girth Exam Const: General: comfortable and no acute distress HENMT: Mouth: Yes moist mucous membranes Eyes: Sclera: sclerae normal Neck: Neck: supple Resp: Effort & Inspection: normal respiratory effort Auscultation: clear to auscultation bilaterally Cardio: Rate: regular rate Rhythm: regular rhythm GI: GI Palp: Yes Soft to palpation Auscultation: normal bowel sounds Skin: General skin exam: normal color Neuro: Other: Alert and oriented x3 Extrem: Other: Mild pretibial edema Objective Data Vital Signs Vital Signs: Vital Signs - 24 hr 10/01/23 09:18 10/01/23 09:51 10/01/23 10:00 Temperature 37.0 C Pulse Rate 70 74 73 Respiratory Rate 15 Blood Pressure 153/62 H 144/69 H 131/63 Pulse Oximetry 96 Oxygen Delivery Oxygen Flow Rate 10/01/23 10:18 10/01/23 10:38 10/01/23 10:00 Temperature Pulse Rate 68 67 71 Respiratory Rate Blood Pressure 131/63 132/65 Pulse Oximetry Oxygen Delivery Oxygen Flow Rate 10/01/23 11:19 10/01/23 12:00 10/01/23 12:00 Temperature 36.7 C Pulse Rate 63 66 Respiratory Rate 19 20 Blood Pressure 149/69 H 148/66 H Pulse Oximetry 96 96 95 Oxygen Delivery Nasal Cannula Oxygen Flow Rate 2 10/01/23 12:00 10/01/23 14:00 10/01/23 16:00 Temperature 36.6 C Pulse Rate 64 59 L 60 Respiratory Rate 17 16 Blood Pressure 147/75 H 162/72 H Pulse Oximetry 95 95 Oxygen Delivery Oxygen Flow Rate 10/01/23 16:00 10/01/23 14:00 10/01/23 17:00 Temperature Pulse Rate 59 L 62 Respiratory Rate 18 Blood Pressure 168/69 H Pulse Oximetry 96 95 Oxygen Delivery Room Air Oxygen Flow Rate 10/01/23 16:00 10/01/23 18:00 10/01/23 18:00 Temperature Pulse Rate 66 63 65 Respiratory Rate 18 Blood Pressure 166/88 H Pulse Oximetry 98 Oxygen Delivery Oxygen Flow Rate 10/01/23 19:55 10/01/23 20:00 10/01/23 20:00 Temperature 36.6 C Pulse Rate 71 70 70 Respiratory Rate 22 H 22 H Blood Pressure 185/75 H Pulse Oximetry 97 97 Oxygen Delivery Room Air Oxygen Flow Rate 10/01/23 20:00 10/01/23 20:30 10/01/23 22:00 Temperature Pulse Rate 71 68 66 Respiratory Rate Blood Pressure 158/67 H Pulse Oximetry Oxygen Delivery Oxygen Flow Rate 10/01/23 22:00 10/01/23 20:50 10/02/23 00:00 Temperature 36.6 C Pulse Rate 66 66 Respiratory Rate 20 15 Blood Pressure 163/71 H 171/72 H Pulse Oximetry 96 96 96 Oxygen Delivery Room Air Oxygen Flow Rate 10/02/23 00:00 10/02/23 00:00 10/02/23 02:00 Temperature Pulse Rate 70 69 71 Respiratory Rate 18 Blood Pressure Pulse Oximetry 97 Oxygen Delivery Room Air Oxygen Flow Rate 10/02/23 02:00 10/02/23 04:00 10/02/23 04:00 Temperature 36.6 C Pulse Rate 71 72 Resp
--- NOTE | 2023-10-02 09:10 | WPDINTPN ---
Progress Note: A&P Assessment and Plan (1) Hypertensive urgency: Code(s): I16.0 - Hypertensive urgency Status: Acute Assessment and Plan: Patient presented with shortness of breath, headaches, bilateral lower extremity edema and elevated blood pressures that he took at home. In the ER blood pressures were 238/82, patient was given hydralazine 10 mg IV x1 and then started on nicardipine infusion and transferred to the ICU for further management -patient states he has tried lisinopril and has not worked for him -he gets his care in [place] from by his primary care doctor as well as his pharmacy laboratory technician -patient lives in a parchmaning trailer and is constantly on the move his -at home he takes Lasix 20 mg p.o. q.day, carvedilol 25 mg p.o. b.i.d. -given his creatinine is elevated, will hold Lasix for now, -patient currently on amlodipine 10 mg p.o. q.day, will increase Coreg to 37.5 mg Q 12 hours -cardiology has started him on chlorthalidone and valsartan and -echocardiogram has been ordered and will be done today -troponin x1 was negative, denies any chest pain (2) Diabetes: Code(s): E11.9 - Type 2 diabetes mellitus without complications Status: Chronic Assessment and Plan: Continue sliding scale insulin Accu-Cheks -hemoglobin A1c is 6.7 this admission -patient takes sitagliptin at home (3) RENETTA (acute kidney injury): Code(s): N17.9 - Acute kidney failure, unspecified Status: Acute Assessment and Plan: Acute kidney injury, creatinine 1.90, (unknown). Patient does have a history of hypertension, diabetes, CHF given his lower extremity edema and elevated proBNP, could also be related to Lasix, patient also has a history of tobacco abuse -echocardiogram is pending -patient with adequate p.o. intake -continue monitoring urine output, renal function electrolytes -will hold her Lasix for now Appreciate (4) Acute hypokalemia: Code(s): E87.6 - Hypokalemia Status: Acute Assessment and Plan: Replace potassium (5) Congestive heart failure: Code(s): I50.9 - Heart failure, unspecified Status: Acute Assessment and Plan: Patient presented with shortness of breath, hypertension urgency, Lower extremity edema bilaterally, elevated proBNP, history of hypertension -will obtain echocardiogram -cardiology evaluation and recommendation -chest x-ray this morning showed mild atelectasis in the left lower lung zone (6) Tobacco abuse: Code(s): Z72.0 - Tobacco use Status: Acute Assessment and Plan: Patient was counseled on smoking cessation, stated that he has tried to quit smoking for a couple of times for 6 months but restarted. Patient stated that he is going to think again about quitting. I did explain to him that he is at increased risk of cardiac disease due to history of smoking along with a history of essential hypertension, diabetes. Plan DVT prophylaxis: Lovenox Stress ulcer prophylaxis: Not indicated Nutrition: Heart healthy diet Code Status: Full code Critical Care Time Spent: 31 minutes Discussed with Cardiology, okay to move patient to intermediate Unit Due to a high probability of clinically significant, life threatening deterioration, the patient required my highest level of preparedness to intervene emergently and I personally spent this critical care time directly and personally managing the patient. This critical care time included obtaining a history; examining the patient; pulse oximetry; ordering and review of studies; arranging urgent treatment with development of a management plan; evaluation of patient's response to treatment; frequent reassessment; and discussions with other providers. It was exclusive of separately billable procedures and treating other patients and teaching time. Please see Assessment and Plan section and the rest of the note for further information on patient assessment and treatment This dictati
[2023-10-02] MEDS: CHLORTHALIDONE 25 MG TABLET PO (09:41)
[2023-10-02] MEDS: VALSARTAN 160 MG TABLET PO (09:41)
--- NOTE | 2023-10-02 09:58 | PM.IMPN ---
Progress Note: A&P Assessment and Plan (1) Hypertensive urgency: Code(s): I16.0 - Hypertensive urgency Status: Acute Assessment and Plan: Patient presented with SOB, headaches and worsening bilateral lower extremity edema and found to have markedly elevated blood pressure at 238/82. 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 He lives out of his camper. Patient states lisinopril has not worked for him. He has noted BP has been running high at home. Home meds: Lasix 20 mg p.o. q.day, carvedilol 25 mg p.o. b.i.d. Trooponin negative x1. BNP 6900. EKG showing sinus bradycardia (59) with LVH and ST-T wave changes CXR showing small bilateral pleural effusions with atelectasis. Lasix held due to elevated Cr. Carvedilol resumed and amlodipine added Cardiology consulted and appreciate their input. Weaned off nicardipine. BP higher so COreg advanced and Diovan and chlorthalidone added. Monitor closely and don't overcorrect Echo pending (2) Diabetes: Code(s): E11.9 - Type 2 diabetes mellitus without complications Status: Chronic Assessment and Plan: A1c is 6.7. The patient's blood glucose was reviewed on 10/01 Glucose remains well controlled. Continue AccuCheks covering with sliding scale. Hypoglycemia protocol available as needed. Continue to follow. Sitagliptin on hold. (3) RENETTA (acute kidney injury): Code(s): N17.9 - Acute kidney failure, unspecified Status: Acute Assessment and Plan: Patient with renal insufficiency. Creatinine 1.7 but with unknown baseline. He does have HTN and DM so suspect he has at least a chronic component. Urine Prot/Cr ration 3.3gm consistent with nephrotic syndrome which could explain his edema and bloating. HIV, Hepatitis negative. C3/C4 normal, UA showing 4+ protein, 1+ glucose, 1+ blood. JOANNE, SPEP/UPEP pending. Echocardiogram is pending Cr 1.7 today. Suspect patient with nephrotic syndrome possibly from DM. Continue to monitor urine output, renal function and electrolytes Nephrology consult (4) Acute hypokalemia: Code(s): E87.6 - Hypokalemia Status: Acute Assessment and Plan: Potassium low on admission. Probably realted to the home lasix Replace potassium again (5) Congestive heart failure: Code(s): I50.9 - Heart failure, unspecified Status: Acute Assessment and Plan: CXR as mentioned above. BNP 6900. Patient presented with SOB and lower extremity edema Concern for CHF but consider nephrotic syndrome and HTN urgency. Echo ordered. lasix IV once last night. Chlorthalidone added. (6) Tobacco abuse: Code(s): Z72.0 - Tobacco use Status: Acute Assessment and Plan: Patient was was educated about the benefits of smoking cessation (7) PVD (peripheral vascular disease): Code(s): I73.9 - Peripheral vascular disease, unspecified Status: Acute Assessment and Plan: Stable. Patient is status post stent placement in his pelvis and lower extremities. Smoking cessation was advised Continue aspirin and Lipitor. Plan DVT prophylaxis: Lovenox Code Status: Full code Subjective Date/time seen: 10/02/23 09:58 Interval history: 63yo male with HTN, DM, PVD and tobacco abise here for shortness of breath. Patient with SOB and with bilateral UE edema. Lasix IV once given. Hydralazine 5mg IV once given for BP of 190/73. Patient feels SOB still this morning. No CP. No n/v. Good UOP with Lasix. UE edema feels better. Exam Narrative: AF 97.7 183/85 74 22 94% 2L Gen - NARD Chest - bibasilar crackles. CV - RRR S1/S2 and 2/6 systolic murmur Rt USB. Tele showing PACs/PVCs Abd - Soft, NT/ND, Positive BS Ext - trace pedal edema Psych - Nml mood and affect Skin - Warm and
[2023-10-02] MEDS: FOLIC ACID 1 MG TABLET PO (10:44)
[2023-10-02] MEDS: CYANOCOBALAMIN 1,000 MCG TABLET 1000 MCG PO (10:44)
[2023-10-02] MEDS: FERROUS SULFATE 325 MG TABLET DR BY MOUTH (10:44)
[2023-10-02] MEDS: OMEGA 3 POLYUNSAT FATTY ACIDS 1 GM CAP PO (10:45)
[2023-10-02] MEDS: MAGNESIUM OXIDE 400 MG TABLET PO (10:45)
--- NOTE | 2023-10-02 11:10 | PM.CNNEP ---
Assessment and Plan Assessment and plan (1) Renal insufficiency: Code(s): N28.9 - Disorder of kidney and ureter, unspecified Status: Acute Assessment and Plan: unclear what baseline creatinine normally runs however, given his risk factor profile, suspect he has some underlying chronic kidney disease creatininie relatively stable since admission reasonable urine output and no critical electrolytes serological testing pending follow repeat labs and UOP (2) Proteinuria: Code(s): R80.9 - Proteinuria, unspecified Status: Acute Assessment and Plan: nephrotic range (3.2 grams) this could partly explain his issues with swelling/edema (nephrotic syndrome) serological testing and renal ultrasound pending presumed to be due to DM/HTN/PVD (3) HTN (hypertension): Code(s): I10 - Essential (primary) hypertension Status: Chronic Assessment and Plan: just weaned off nicardipine gtt diovan and chlorthalidone added to regimen per Cardiology continue carvedilol and amlodipine given #2, would maximize ARB therapy and consider using diltiazem instead of amlodipine for its anti-proteinuric effects follow trend of hemodynamics (4) Fluid overload: Code(s): E87.70 - Fluid overload, unspecified Status: Acute Assessment and Plan: Echo pending due to CHF, nephrotic syndrome, or HTN urgency versus a combination of all (?) may need further loop diuretic therapy - however, will see response to chlorthalidone follow volume status (5) Diabetes: Code(s): E11.9 - Type 2 diabetes mellitus without complications Status: Chronic Assessment and Plan: follow accu-cheks glycemic control per hospitalists I will continue follow the patient with you while he remains hospitalized and make further recommendations as deemed necessary. Thank you for allowing me to participate in the care this patient. History of Present Illness Reason for Consult Consult date: 10/02/23 Reason for consult: proteinuria Chief Complaint Chief complaint: Hypertensive Emergency/Cardene Drip/Fluid Overload History of Present Illness Narrative: The patient is a 63-year-old male with a past medical history as outlined below who presented to [facility] Emergency room with complaints of shortness of breath and increased lower extremity swelling/edema. The patient states that he has always had some degree of lower extremity swelling /edema that seemed to start about a year ago although it has progressed in that time frame. Originally, it was more localized around his ankles but then over time it seems that the swelling has progressively worsened to encompasses entire lower extremities. He reports the shortness of breath has been going on for last two weeks. Initially, he noted when he used to lay on his left side and use be alleviated by slow depress but since that time, it has continued to worsen and now is occurring intermittently. It seems to be present both at rest as well as with exertional activities. He apparently saw his primary care physician earlier this week and was noted to have a blood pressure greater than 200 systolic on that visit. He was urged to go to the emergency room for further assessment but instead went home and recheck his blood pressure and Perry it to be around 180 systolic. The day before admission, he stated that he was not feeling right and by the next morning, his blood pressure was once again elevated and had a significant headache which prompted his visit to the ER. Workup and evaluation in the emergency room demonstrated severe hypertension with a systolic BP greater than 200s although despite his complaints of shortness of breath, he was satting 90% on room air. Routine blood test demonstrated an unremarkable CBC but a chemistry with mild hypokalemia mildly elevated creatinine 1.7, a BNP of 69 10 and a mild troponin elevation. His
[2023-10-02 11:34] LABS: Glucose Point of Care 186 mg/dl (65-105)
--- NOTE | 2023-10-02 12:29 | PCOTNOTE ---
Pt. reports independce in room, declines need for OT. Nursing aware and in agreement.
--- NOTE | 2023-10-02 15:21 | PC.NURSE ---
This patient, Adonis James, was transferred to [facility] on 10/02/23 at 1517. Personal belongings sent with patient. Report given to Mickie. Appropriate documentation sent with patient.
--- NOTE | 2023-10-02 15:26 | PC.NURSE ---
This patient, Adonis James, was received from [ICU ] on 10/02/23 at 1526. Patient/family oriented to unit policies and routines
[2023-10-02 16:16] LABS: Glucose Point of Care 170 mg/dl (65-105)
[2023-10-02 20:47] LABS: Glucose Point of Care 155 mg/dl (65-105)
[2023-10-03] VITALS (14 sets, daily range): BP systolic 167–195; BP diastolic 59–72; PULSE 59–78; RESP 18–20; TEMP 36.1–36.7; O2SAT 92–98
[2023-10-03 02:59] LABS: Protein, Total 5.5 g/dL (6.1-8.1)
--- NOTE | 2023-10-03 04:11 | PCRCNOTE ---
Pt refused to do apnea link and took device off at midnight. Rn called RT at 0400 to make aware
[2023-10-03] MEDS: hydrALAZINE HCL 20 MG/ML VIAL 10 MG IV PUSH ×2 (04:12→10:56)
[2023-10-03 05:02] LABS: Basophils Percent Auto 0.4 % (0.2-1.2); Eosinophils Absolute Auto 0.1 K/mm3 (0-0.3); Eosinophils Percent Auto 1.1 % (0-4.4); Hematocrit 35.2 % (42.0-52.0); Immature Granulocyte Absolute 0.03 K/mm3 (0.00-0.031); Immature Granulocyte Percent A 0.4 % (0-0.5); Immature Platelet Fraction Pct 8.4 % (0.9-11.2); Lymphocytes Absolute Auto 1.42 K/mm3 (0.9-3.2); Lymphocytes Percent Auto 18.9 % (18.3-44.2); Mean Corpuscular HGB Conc 34.1 g/dl (32-36); Mean Corpuscular Volume 96.7 fl (80-100); Mean Platelet Volume 11.4 fl (7.4-10.4); Monocytes Absolute Auto 0.8 K/mm3 (0.1-0.6); Monocytes Percent Auto 10.2 % (2.6-8.5); Neutrophils Absolute Auto 5.2 K/mm3 (1.3-6.7); Platelet Count Result 85 k/mm3 (150-375); Red Blood Count 3.64 M/mm3 (4.6-6.20); Red Cell Distribution Width 12.4 % (11.5-14.5); White Blood Count 7.5 K/mm3 (4.5-10.0)
[2023-10-03 05:11] LABS: Alanine Aminotransferase 29 U/L (6-50); Albumin Level 3.2 g/dL (3.5-5.1); Alkaline Phosphatase 112 U/L (38-126); Anion Gap 6 mmol/L (4-12); Aspartate Amino Transferase 39 U/L (17-59); Blood Urea Nitrogen 17 mg/dL (9-20); Calcium 8.5 mg/dL (8.4-10.2); Carbon Dioxide 27 mmol/L (22-30); Chloride 102 mmol/L (98-107); Estimated CRCL calculation 52 ml/min; Estimated Glomerular Filt Rate 44; Glucose 129 mg/dL (65-110); Phosphorus 4.1 mg/dL (2.5-4.5); Potassium 3.6 mmol/L (3.4-5.0); Sodium 135 mmol/L (137-145)
[2023-10-03 08:07] LABS: Glucose Point of Care 132 mg/dl (65-105)
[2023-10-03] MEDS: MAGNESIUM OXIDE 400 MG TABLET PO (08:31)
[2023-10-03] MEDS: carvediloL 12.5 MG TABLET 37.5 MG PO (08:31)
[2023-10-03] MEDS: ATORVASTATIN 40 MG TABLET 80 MG PO (08:31)
[2023-10-03] MEDS: DULoxetine HCL 30 MG CAPSULE.DR PO (08:31)
[2023-10-03] MEDS: amLODIPine BESYLATE 10 MG TABLET PO (08:31)
[2023-10-03] MEDS: OMEGA 3 POLYUNSAT FATTY ACIDS 1 GM CAP PO (08:31)
[2023-10-03] MEDS: VALSARTAN 160 MG TABLET PO (08:32)
[2023-10-03] MEDS: CHLORTHALIDONE 25 MG TABLET PO (08:32)
[2023-10-03] MEDS: FERROUS SULFATE 325 MG TABLET DR BY MOUTH (08:32)
[2023-10-03] MEDS: PANTOPRAZOLE 40 MG TABLET PO (08:32)
[2023-10-03] MEDS: ASPIRIN 81 MG CHEWABLE TABLET PO (08:32)
[2023-10-03] MEDS: CLOPIDOGREL BISULFATE 75 MG TABLET PO (08:33)
[2023-10-03] MEDS: CYANOCOBALAMIN 1,000 MCG TABLET 1000 MCG PO (08:33)
[2023-10-03] MEDS: FOLIC ACID 1 MG TABLET PO (09:39)
--- NOTE | 2023-10-03 11:25 | PM.PNCARD ---
Progress Note: A&P Assessment and Plan (1) HTN (hypertension): Code(s): I10 - Essential (primary) hypertension Status: Chronic (2) Renal insufficiency: Code(s): N28.9 - Disorder of kidney and ureter, unspecified Status: Acute (3) Proteinuria: Code(s): R80.9 - Proteinuria, unspecified Status: Acute Plan This is a 63-year-old man with longstanding hypertension on a multidrug regimen with measurable improvement in blood pressure. From that perspective he does not have to stay in the hospital anymore as far as I can see. Understand and appreciate nephrology opinion to change calcium channel danny to diltiazem in view of proteinuria. After follow-up is with is very important that he follows closely with his PCP and probably it with Nephrology as well for optimal management of his blood pressure in view of his [employer] range proteinuria. Cardiology will sign off at this time Balwinder Moise MD [facility] Subjective Date/time seen: Date of service: 10/03/23 11:25 Interval history: Follow-up visit in this 63-year-old man with: Longstanding hypertension poor control. Patient has been on carvedilol chronically but really not much else in the way of antihypertensive regimen. Amlodipine has been added to his regimen. Blood pressure is still in the 180-190 range today. He is otherwise relatively comfortable. He does have some persistent lower extremity edema and abdominal girth Date of service 10/03/2023: Patient is comfortable today asymptomatic. Blood pressure is significantly improved with the addition of Diovan and chlorthalidone to his regimen. Nephrology consult reviewed and appreciated. Exam Const: General: comfortable and no acute distress HENMT: Mouth: Yes moist mucous membranes Eyes: General: appearance normal, both eyes and all related structures Sclera: sclerae normal Neck: Neck: supple Resp: Effort & Inspection: normal respiratory effort Auscultation: clear to auscultation bilaterally Cardio: Rate: regular rate Rhythm: regular rhythm Heart sounds: no murmurs GI: Inspection: distended Auscultation: normal bowel sounds Skin: General skin exam: normal color Neuro: Speech: normal speech Other: Alert and oriented x3 Extrem: Other: Mild pretibial edema Psych: Mental Status: mental status grossly normal Affect: normal affect Objective Data Vital Signs Vital Signs: Vital Signs - 24 hr 10/02/23 12:00 10/02/23 12:00 10/02/23 12:00 Temperature 36.4 C L Pulse Rate 63 63 Respiratory Rate 19 Blood Pressure 158/74 H Pulse Oximetry 95 96 Oxygen Delivery Room Air 10/02/23 14:00 10/02/23 15:41 10/02/23 16:00 Temperature 36.2 C L Pulse Rate 72 61 63 Respiratory Rate 18 Blood Pressure 161/80 H Pulse Oximetry 98 Oxygen Delivery 10/02/23 18:00 10/02/23 20:15 10/02/23 20:25 Temperature 36.3 C L Pulse Rate 62 71 62 Respiratory Rate 20 Blood Pressure 194/74 H Pulse Oximetry 95 Oxygen Delivery 10/02/23 20:43 10/02/23 22:00 10/02/23 22:49 Temperature 36.6 C Pulse Rate 68 61 Respiratory Rate 20 Blood Pressure 178/68 H Pulse Oximetry 96 Oxygen Delivery Room Air 10/02/23 22:00 10/03/23 00:10 10/03/23 00:00 Temperature 36.1 C L Pulse Rate 63 61 61 Respiratory Rate 20 Blood Pressure 167/59 H Pulse Oximetry 92 Oxygen Delivery 10/03/23 01:56 10/03/23 03:54 10/03/23 04:00 Temperature 36.5 C Pulse Rate 59 L 70 Respiratory Rate 18 Blood Pressure 188/72 H Pulse Oximetry 94 Oxygen Delivery Room Air 10/03/23 05:14 10/03/23 04:00 10/03/23 06:00 Temperature 36.6 C Pulse Rate 67 65 Respiratory Rate Blood Pressure 187/60 H Pulse Oximetry Oxygen Delivery 10/03/23 07:13 10/03/23 08:31 10/03/23 08:00 Temperature 36.6 C Pulse Rate 65 78 Respiratory Rate 20 Blood Pressure 195/72 H Pulse Oximetry 98 Oxygen Delivery Room
--- NOTE | 2023-10-03 12:22 | PM.DS ---
DS: Admitting Diagnosis Discharge Date 10/03/23 Admitting Diagnosis Shortness of breath. DS: Discharge Diagnosis Discharge Diagnosis (1) Hypertensive urgency: Code(s): I16.0 - Hypertensive urgency Status: Acute (2) Diabetes: Code(s): E11.9 - Type 2 diabetes mellitus without complications Status: Chronic (3) Acute hypokalemia: Code(s): E87.6 - Hypokalemia Status: Acute (4) Tobacco abuse: Code(s): Z72.0 - Tobacco use Status: Acute (5) PVD (peripheral vascular disease): Code(s): I73.9 - Peripheral vascular disease, unspecified Status: Acute (6) Proteinuria: Code(s): R80.9 - Proteinuria, unspecified Status: Acute (7) Renal insufficiency: Code(s): N28.9 - Disorder of kidney and ureter, unspecified Status: Acute (8) Fluid overload: Code(s): E87.70 - Fluid overload, unspecified Status: Acute (9) Thrombocytopenia: Code(s): D69.6 - Thrombocytopenia, unspecified Status: Acute DS: Summary Hospital Course Reason for hospitalization: 63yo male with HTN, DM, PVD and tobacco abise here for shortness of breath. Please see H&P for details. Hospital Course: Patient presented with SOB, headaches and worsening bilateral lower extremity edema and found to have markedly elevated blood pressure at 238/82. Patient was given hydralazine 10 mg IV x1 and then started on nicardipine infusion and transferred to the ICU for further management. 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 He lives out of his [facility]. Patient states lisinopril has not worked for him. He has noted BP has been running high at home. Home meds: Lasix 20 mg p.o. q.day, carvedilol 25 mg p.o. b.i.d. Trooponin negative x1. BNP 6900. EKG showing sinus bradycardia (59) with LVH and ST-T wave changes. CXR showing small bilateral pleural effusions with atelectasis. Lasix held due to elevated creatinine. Carvedilol resumed and amlodipine added. Cardiology consulted and appreciate their input. He was weaned off nicardipine. Blood pressure still not at goal so Coreg advanced and Diovan and chlorthalidone added. Echo showing EF 65-70%, severe, concentric LV wall thickness and Grade I diastolic dysfunction. Patient has diabetes with A1c is 6.7. The patient's blood glucose was monitored with AccuCheks covering with sliding scale. Hypoglycemia protocol was available as needed. Patient with renal insufficiency. Creatinine 1.7 but with unknown baseline. He does have HTN and DM so suspect he may have at least a chronic component. Urine Prot/Cr ration 3.3gm consistent with nephrotic syndrome which could explain his edema and bloating. HIV, Hepatitis negative. C3/C4 normal, UA showing 4+ protein, 1+ glucose, 1+ blood. JOANNE, SPEP/UPEP pending. Cr 1.6 today. Nephrology consulted and appreciate their input. Suspect patient with nephrotic syndrome possibly from DM. BNP 6900. Patient presented with SOB and lower extremity edema. Concern for CHF but felt more likely nephrotic syndrome and HTN urgency. Lasix IV given. Chlorthalidone added. Patient was educated about the benefits of smoking cessation. Patient is status post stent placement in his pelvis and lower extremities. Smoking cessation was advised. We continued aspirin and Lipitor. He overall did well and was able to be discharged on 10/03/23. Status at Discharge Cognitive/behavioral status at discharge: stable Time Spent with Patient Time attestation: Total time spent providing and/or coordinating discharge services: 37 minutes Time spent: Greater than 30 minutes Exam Narrative: AF 98.0 168/71 67 20 97% ra Gen - NARD sitting up at the side of the bed Chest - few bibasilar rhonchi CV - RRR S1/S2 and 2/6 systolic murmur Rt USB. Tele showing PACs Abd - Soft, NT/ND, Positive BS Ext - trace pedal edema Psych - Nml mood and affect Skin - Warm and dry DS: Data Data
[2023-10-03 12:33] LABS: Glucose Point of Care 177 mg/dl (65-105)
[2023-10-03 14:13] LABS: Creatinine, Random Urine 237 mg/dL (20-320); Total Protein/Creatinine Ratio 4688 mg/g creat (25-148)
[2023-10-05 16:12] LABS: Albumin 2.4 g/dL (3.8-4.8); Alpha 1 Globulin 0.4 g/dL (0.2-0.3); Alpha 2 Globulin 0.9 g/dL (0.5-0.9); Beta 1 Globulin 0.4 g/dL (0.4-0.6); Gamma Globulin 1.1 g/dL (0.8-1.7)
[2023-10-05 16:53] LABS: Immunofixation, Serum Normal pattern.
[2023-10-06 18:09] LABS: Platelet Antibody, Direct IgG NEGATIVE (NEGATIVE)
[2023-10-06 21:18] LABS: Heparin Induced Platelet Antib Negative (Negative)
--- NOTE | 2023-10-09 07:52 | PC.NURSE ---
DNA ds nml at <1 JOANNE is negative Hep induced Ab- negative SIF- nml pattern UIF- neg Plt Ab IgG- negative SPEP- Acute phase response UPEP- negative Sputum is negative. Dr. Rachelle zamora.
== END 2023-10-03 13:32 | disposition home or self-care (01) | DRG 305 ==
LOC: ANHED 16:31 → ANHICU 17:17 → ANHIMU 10-02 15:21
PROVIDERS: Internal Medicine; Student in an Organized Health Care Education/Training Program; Admitting Provider Family Medicine; Emergency Provider Emergency Medicine; PCP Nurse Practitioner; Visit Provider Internal Medicine
DX: I16.1 Hypertensive emergency (principal); N17.9 Acute kidney failure, unspecified; I10 Essential (primary) hypertension; E87.70 Fluid overload, unspecified; E87.6 Hypokalemia; E11.51 Type 2 diabetes mellitus with diabetic peripheral angiopathy without gangrene; E11.21 Type 2 diabetes mellitus with diabetic nephropathy; D69.6 Thrombocytopenia, unspecified; F17.210 Nicotine dependence, cigarettes, uncomplicated; Z79.02 Long term (current) use of antithrombotics/antiplatelets; Z79.82 Long term (current) use of aspirin
CPT/HCPCS: 36415; 71045; 71046; 76775; 80053; 80069; 81001; 81050; 82550; 82570; 82948; 83036; 83735; 83880; 84100; 84155; 84156; 84165; 84166; 84300; 84443; 84484; 85025; 85055; 85610; 85730; 86022; 86023; 86038; 86039; 86160; 86225; 86334; 86335; 86703; 86706; 86803; 87070; 87205; 87340; 87641; 93005; 93306; 96374; 97161; 99285; A9270; G0432; J0360; J1650; J1815; J1940; J2404; J3475